=== PATIENT | male | born 1950 | race Caucasian/White ===

== ENCOUNTER 2016-06-18 18:33 | Emergency (ER) | payer MEDICAID, SELFPAY ==
[~2016-06-18 18:33] MED LIST: ACCUNEB DP0.63 MG/3 IH; ADVIL DPS200 MG PO; ASA325 MG PO; DELTASONE DPS10 MG PO; HABITROL DPS21 MG TP; MAALOX DPS30 ML PO; MOTRIN-DPS600 MG PO; MUCINEX600 MG PO; OMNICEF DPS300 MG PO; PRILOSEC DPS20 MG PO; SYMBICORT 16010.2 GM IH; TAMIFLU75 MG PO; TYLENOL DPS325 MG PO; ZITHROMAX250 MG PO
== END 2016-06-18 20:30 | disposition home or self-care (01) ==
DX: J44.1 Chronic obstructive pulmonary disease with (acute) exacerbation (principal); F17.210 Nicotine dependence, cigarettes, uncomplicated